=== PATIENT | male | born 1985 | race Caucasian/White ===

== ENCOUNTER → 2019-04-11 | Outpatient (REF) | payer OTHER | LOC: M SMT 13:16 | PROVIDERS: ATTEND Urology | DX: Z30.2 Encounter for sterilization (principal) ==

== ENCOUNTER → 2022-02-02 | Outpatient (CLI) | payer OTHER | LOC: M RAD 15:32 | PROVIDERS: ATTEND Physician Assistant | DX: N50.811 Right testicular pain (principal) ==

== ENCOUNTER → 2023-01-13 | Outpatient (REF) | payer OTHER | LOC: M LAB REF 11:26 | PROVIDERS: ATTEND Internal Medicine Gastroenterology | DX: R19.7 Diarrhea, unspecified (principal) ==